=== PATIENT | female | born 1990 | race Caucasian/White ===

== ENCOUNTER 2017-01-15 08:22 | Inpatient (IN) | payer OTHER ==
[2017-01-15] VITALS (17 sets, daily range): BP systolic 106–162; BP diastolic 53–79
[~2017-01-15] VITALS: Ht 160 cm; Wt 97.5 kg
[2017-01-15] MEDS ORDERED: PRENATAL TABLE1 EAC3 PO (09:02)
[2017-01-15] MEDS ORDERED: PROBIOTIC1 EAC1 PO (09:02)
[2017-01-15 10:20] LABS: EOSINOPHIL (%) 0.6 % (0-5); EOSINOPHIL COUNT 0.1 K/uL (0-0.3); HEMATOCRIT 38.5 % (36.0-46.0); IMMATURE GRANULOCYTE (%) 1.2 % (0.0-0.7); IMMATURE GRANULOCYTE COUNT 0.1 K/uL; INSTRUMENT ABS NEUTROPHIL CT 6.7 K/uL; LYMPHOCYTE COUNT 1.2 K/uL (1.0-2.8); MCH 28.9 PG (29.0-34.0); MCV 87.5 FL (83-99); MEAN PLAT.VOLUME 13.3 uM^3 (9.5-12.4); MONOCYTE (%) 4.6 % (3-12); MONOCYTE COUNT 0.4 K/uL (0-0.8); NEUTROPHIL (%) 79.3 % (45-76); NEUTROPHIL COUNT 6.7 K/uL (1.8-6.4); PLATELET COUNT 109 K/uL (156-360); RBC DIS.WIDTH-CV 14.9 % (11.8-14.6); RBC DIS.WIDTH-SD 46.5 % (39-53); WHITE BLOOD COUNT 8.4 K/uL (4.1-10.2)
[2017-01-15 11:53] LABS: AMPHETAMINE NEGATIVE (500 ng/mL); BARBITURATES NEGATIVE (200 ng/mL); BENZODIAZEPINES NEGATIVE (150 ng/mL); COCAINE NEGATIVE (150 ng/mL); INTERNAL CONTROLS VALID? YES; METHADONE NEGATIVE (200 ng/mL); METHAMPHETAMINE NEGATIVE (500 ng/mL); OPIATES (MORPHINE) NEGATIVE (100 ng/mL); OXYCODONE NEGATIVE (100 ng/mL); PHENCYCLIDINE NEGATIVE (25 ng/mL); PROPOXYPHENE NEGATIVE (300 ng/mL); THC CANNABINOIDS NEGATIVE (50 ng/mL); TRICYCLIC ANTIDEPRESSANTS NEGATIVE (300 ng/mL)
[2017-01-16] VITALS (36 sets, daily range): BP systolic 100–139; BP diastolic 53–81
[2017-01-17 02:05] VITALS: BP 99/56
[2017-01-17 07:42] VITALS: BP 111/54
[2017-01-17 07:42] LABS: EOSINOPHIL (%) 0.1 % (0-5); HEMATOCRIT 29.8 % (36.0-46.0); IMMATURE GRANULOCYTE (%) 0.7 % (0.0-0.7); IMMATURE GRANULOCYTE COUNT 0.1 K/uL; INSTRUMENT ABS NEUTROPHIL CT 13.3 K/uL; LYMPHOCYTE COUNT 1.3 K/uL (1.0-2.8); MCH 29.1 PG (29.0-34.0); MCHC 32.9 G/DL (30.0-36.0); MCV 88.4 FL (83-99); MEAN PLAT.VOLUME 13.6 uM^3 (9.5-12.4); MONOCYTE (%) 4.9 % (3-12); MONOCYTE COUNT 0.8 K/uL (0-0.8); NEUTROPHIL (%) 85.9 % (45-76); NEUTROPHIL COUNT 13.3 K/uL (1.8-6.4); PLATELET COUNT 97 K/uL (156-360); RBC DIS.WIDTH-CV 15.7 % (11.8-14.6); RBC DIS.WIDTH-SD 48.9 % (39-53); WHITE BLOOD COUNT 15.4 K/uL (4.1-10.2)
[2017-01-17 07:43] LABS: RED BLOOD COUNT 3.37 M/uL (3.80-5.20)
[2017-01-17 11:35] VITALS: BP 126/66
[2017-01-17 16:52] VITALS: BP 100/55
[2017-01-17 20:20] VITALS: BP 110/55
[2017-01-17 22:54] VITALS: BP 119/57
[2017-01-18 03:23] VITALS: BP 106/53
[2017-01-18 06:34] VITALS: BP 119/57
[2017-01-18 08:20] LABS: HEMATOCRIT 27.3 % (36.0-46.0); MCH 27.7 PG (29.0-34.0); MCHC 31.5 G/DL (30.0-36.0); MCV 87.8 FL (83-99); MEAN PLAT.VOLUME 13.3 uM^3 (9.5-12.4); PLATELET COUNT 94 K/uL (156-360); RBC DIS.WIDTH-CV 15.7 % (11.8-14.6); RBC DIS.WIDTH-SD 48.5 % (39-53); RED BLOOD COUNT 3.11 M/uL (3.80-5.20); WHITE BLOOD COUNT 11.3 K/uL (4.1-10.2)
[2017-01-18 23:34] VITALS: BP 130/60
[2017-01-19] MEDS ORDERED: ENDOCET 5-3251 EACH PO (07:49)
[2017-01-19] MEDS ORDERED: FERROUS SULFAT325 MG PO (07:49)
[2017-01-19] MEDS ORDERED: IBUPROFEN800 MG PO (07:49)
== END 2017-01-19 15:29 | disposition home or self-care (01) | DRG 765 ==
LOC: LDRP-OP → 2WEST 08:23 → LDRP-OP 02-04 15:46
PROVIDERS: Advanced Practice Midwife; Obstetrics & Gynecology
PROC: 3E033VJ Introduction of Other Hormone into Peripheral Vein, Percutaneous Approach (ICD-10-PCS; principal; 2017-01-16)
PROC: 3E0R3BZ Introduction of Anesthetic Agent into Spinal Canal, Percutaneous Approach (ICD-10-PCS; principal; 2017-01-16)
PROC: 3E0P7VZ Introduction of Hormone into Female Reproductive, Via Natural or Artificial Opening (ICD-10-PCS; principal; 2017-01-16)
PROC: 0U7C7ZZ Dilation of Cervix, Via Natural or Artificial Opening (ICD-10-PCS; principal; 2017-01-16)
PROC: 10D00Z1 Extraction of Products of Conception, Low, Open Approach (ICD-10-PCS; principal; 2017-01-16)
PROC: 10907ZC Drainage of Amniotic Fluid, Therapeutic from Products of Conception, Via Natural or Artificial Opening (ICD-10-PCS; principal; 2017-01-16)
PROC: 00HU33Z Insertion of Infusion Device into Spinal Canal, Percutaneous Approach (ICD-10-PCS; principal; 2017-01-16)
DX: O62.0 Primary inadequate contractions (principal); O99.02 Anemia complicating childbirth; D62 Acute posthemorrhagic anemia; O99.12 Other diseases of the blood and blood-forming organs and certain disorders involving the immune mechanism complicating childbirth; D69.6 Thrombocytopenia, unspecified; O86.4 Pyrexia of unknown origin following delivery; O48.0 Post-term pregnancy; O69.81X0 Labor and delivery complicated by cord around neck, without compression, not applicable or unspecified; O26.03 Excessive weight gain in pregnancy, third trimester; O99.72 Diseases of the skin and subcutaneous tissue complicating childbirth; L08.9 Local infection of the skin and subcutaneous tissue, unspecified; Z3A.41 41 weeks gestation of pregnancy; Z37.0 Single live birth; Z87.891 Personal history of nicotine dependence
CPT/HCPCS: 59025; 85025; 85027; 86850; 86900; 86901; C1755; G0378; J0131; J0595; J0690; J1100; J1885; J2210; J2274; J2405; J2795; J3010; J7120; Q0169

== ENCOUNTER 2017-01-21 14:27 | Observation (INO) | payer OTHER ==
[~2017-01-21] VITALS: Ht 162.6 cm; Wt 93.6 kg
[~2017-01-21 14:27] MED LIST: ENDOCET 5-3251 EACH PO; FERROUS SULFAT325 MG PO; IBUPROFEN800 MG PO; PRENATAL TABLE1 EAC3 PO; PROBIOTIC1 EAC1 PO
[2017-01-21 15:06] LABS: HEMATOCRIT 28.4 % (36.0-46.0); MCH 28.6 PG (29.0-34.0); MCHC 32.4 G/DL (30.0-36.0); MCV 88.2 FL (83-99); NRBC (%) 0.2 /100 WBC (0-0); RBC DIS.WIDTH-CV 15.7 % (11.8-14.6); RBC DIS.WIDTH-SD 49.7 % (39-53); RED BLOOD COUNT 3.22 M/uL (3.80-5.20)
[2017-01-21 15:07] LABS: MEAN PLAT.VOLUME 10.9 uM^3 (9.5-12.4); PLATELET COUNT 163 K/uL (156-360)
[2017-01-21 15:15] LABS: CHLORIDE 104 mEq/L (99-109); POTASSIUM 4.2 mEq/L (3.7-5.4); SODIUM 139 mEq/L (136-147)
[2017-01-21 15:17] LABS: GLUCOSE 86 mg/dL (70-99)
[2017-01-21 15:18] LABS: ANION GAP 9 MEQ/L (2-14)
[2017-01-21 15:19] LABS: TOTAL BILIRUBIN 0.4 mg/dL (0.0-1.0)
[2017-01-21 15:20] LABS: ALKALINE PHOSPHATASE 121 IU/L (3-129)
[2017-01-21 15:21] LABS: GFR ESTIMATE (CALCULATED) > 59 mL/min/
[2017-01-21 15:22] LABS: UREA NITROGEN (BUN) 8 mg/dL (9-23)
[2017-01-21 15:30] LABS: QUANTITATIVE HCG 169.4 MIU/ML
[2017-01-21 17:53] LABS: ADD MIUA? YES; BILIRUBIN NEGATIVE; BLOOD LARGE; COLOR YELLOW ((YELLOW)); GLUCOSE (STRIP) NEGATIVE; KETONES NEGATIVE; LEUKOCYTES LARGE; NITRITE NEGATIVE; PROTEIN (STRIP) NEGATIVE; SPECIFIC GRAVITY 1.008 (1.000-1.030); UROBILINOGEN 0.2 MG/DL (0.2-1.0)
[2017-01-21 18:07] LABS: BACTERIA RARE /HPF; EPITHELIAL CELLS RARE /HPF; MUCUS NONE SEEN /LPF; UCUL ADDED? YES; WHITE BLOOD CELLS TNTC /HPF (0-5)
[2017-01-21] MEDS ORDERED: DOCUSATE SODIU100 M1 PO (20:40)
[2017-01-21 22:49] VITALS: BP 119/61
[2017-01-22 03:12] VITALS: BP 112/57
[2017-01-22 07:00] VITALS: BP 109/64
[2017-01-22 09:34] LABS: HEMATOCRIT 28.9 % (36.0-46.0); MCH 28.6 PG (29.0-34.0); MCHC 32.2 G/DL (30.0-36.0); MCV 88.9 FL (83-99); MEAN PLAT.VOLUME 11.3 uM^3 (9.5-12.4); NRBC (%) 0.4 /100 WBC (0-0); PLATELET COUNT 170 K/uL (156-360); RBC DIS.WIDTH-CV 15.9 % (11.8-14.6); RED BLOOD COUNT 3.25 M/uL (3.80-5.20); WHITE BLOOD COUNT 10.3 K/uL (4.1-10.2)
[2017-01-22 10:10] LABS: ABS NEUTROPHIL COUNT 9.2; ANISOCYTOSIS 1+; ATYPICAL LYMPHOCYTE 0.9 %; BAND NEUTROPHILS 16.1 % (0-8.0); EOSINOPHIL ABS CT 0; INSTRUMENT ABS NEUTROPHIL CT 7.6 K/uL; LYMPHOCYTES 4.4 % (15.0-45.0); METAMYELOCYTES 3.6 %; MICROCYTOSIS 1+; MYELOCYTES 0.9 %; NUCLEATED RBC'S 1.8; PLAT.SUFFICIENCY ADEQUATE; SEG.NEUTROPHILS 73.2 % (46.0-76.0)
[2017-01-22 12:00] VITALS: BP 110/68
[2017-01-22 20:06] VITALS: BP 116/55
[2017-01-22 23:49] VITALS: BP 113/65
[2017-01-23 03:59] VITALS: BP 90/51
[2017-01-23 07:10] VITALS: BP 90/60
[2017-01-23] MEDS ORDERED: ENDOCET 5-3251 EACH PO (09:42)
[2017-01-23] MEDS ORDERED: FLAGYL500 MG PO (09:44)
[2017-01-23] MEDS ORDERED: AUGMENTIN875 MG PO (09:44)
[2017-01-23 12:10] VITALS: BP 94/62
== END 2017-01-23 12:45 | disposition home or self-care (01) ==
LOC: EME 14:27 → EDOF 20:54 → 2EAST 20:54 → EDOF 20:54 → 2EAST 20:54 → ENRESERV 21:19 → CANRESERV 21:19 → ENRESERV 21:28 → 2EAST 22:20
PROVIDERS: Obstetrics & Gynecology
DX: O86.12 Endometritis following delivery (principal); L03.311 Cellulitis of abdominal wall; O86.0 Infection of obstetric surgical wound; E66.9 Obesity, unspecified; Z86.19 Personal history of other infectious and parasitic diseases; Z83.3 Family history of diabetes mellitus
CPT/HCPCS: 74177; 80053; 80170; 81003; 84702; 85025; 85027; 87086; 99281; 99285; G0378; J1580; J2270; J2543; J7050; J7120